=== PATIENT | female | born 1995 | race Caucasian/White ===

== ENCOUNTER 2018-08-22 15:05 | Emergency (ER) | payer SELFPAY ==
[2018-08-22 15:09] VITALS: BP 120/73; PULSE 100; TEMP 98.7; BMI 34.3
--- NOTE | 2018-08-22 15:36 | PDOC ---
History of Present Illness - General Chief Complaint: Shortness of Breath Stated Complaint: S.O.B. Time Seen by Provider: 08/22/18 15:19 History Source: Patient Exam Limitations: No Limitations - History of Present Illness Initial Comments: 08/22/18 15:30 Patient states came to emergency department to be evaluated for difficulties taking deep inspiration. States over the past 2 days after eating some specific food, quesadilla states had difficulty catching her breath and difficulty swallowing. States that episode resolved but toady had same type after drinking. DEnies fevers / cough/ recent illness/ no one home ill. Has never had gastric problems/ no reflux or indigestion. NO N/V/D/C. was concerned after Google search of symptoms that she was having a heart attack /. Timing/Duration: reports: changing over time, intermittent Severity: reports: mild Possible Cause: Yes: no prior episodes Associated Symptoms: reports: shortness of breath. denies: cough, dizziness, earache, nasal congestion, nasal drainage Past History - Travel Traveled outside of the country in the last 30 days: No Close contact w/someone who was outside of country & ill: No - Past Medical History Allergies/Adverse Reactions: Allergies Allergy/AdvReac Type Severity Reaction Status Date / Time No Known Allergies Allergy Verified 08/22/18 15:09 Home Medications: Ambulatory Orders NK [No Known Home Medication] 08/22/18 COPD: No - Immunization History Immunization Up to Date: Yes - Suicide/Smoking/Psychosocial Hx Smoking History: Never smoked Have you smoked in the past 12 months: No Hx Alcohol Use: No Drug/Substance Use Hx: No Substance Use Type: None Review of Systems - Review of Systems Able to Perform ROS?: Yes Is the patient limited [place] proficient: Yes Constitutional: Yes: Symptoms Reported, See HPI, Malaise. No: Fever, Loss of Appetite HEENTM: Yes: See HPI, Difficulty Swallowing. No: Symptoms Reported, Nose Congestion, Throat Swelling, Dental Problems, Mouth Swelling Respiratory: Yes: See HPI, Shortness of Breath (intermittant). No: Symptoms reported, Cough, Wheezing Cardiac (ROS): No: Symptoms Reported : No: Symptoms Reported Musculoskeletal: No: Symptoms Reported Neurological: Yes: See HPI, Tingling. No: Symptoms reported, Headache All Other Systems: Reviewed and Negative *Physical Exam - Vital Signs Last Vital Signs Temp Pulse Resp BP Pulse Ox 98.7 F 100 H 20 120/73 100 08/22/18 15:07 08/22/18 15:07 08/22/18 15:07 08/22/18 15:07 08/22/18 15:07 - Physical Exam General Appearance: Yes: Nourished, Appropriately Dressed. No: Apparent Distress HEENT: positive: ANKUSH, Normal ENT Inspection ( ), TMs Normal, Pharynx Normal, Other (no swelling, redness, masses, bleeding or obstruction noted in posterior pharynx). negative: Pharyngeal Erythema, Tonsillar Exudate, Tonsillar Erythema , Nasal Congestion, Rhinorrhea Neck: positive: Supple. negative: Tender Respiratory/Chest: positive: Lungs Clear, Normal Breath Sounds. negative: Chest Tender, Wheezing Gastrointestinal/Abdominal: positive: Soft. negative: Tender Extremity: positive: Normal Inspection. negative: Normal Capillary Refill Integumentary: positive: Normal Color, Dry, Warm Neurologic: positive: marketing campaign analyst II-XII NML intact, Fully Oriented, Alert, Normal Mood/ Affect, Normal Response, Motor Strength 02/13 ED Treatment Course - RADIOLOGY Radiology Studies Ordered: Category Date Time Status NECK SOFT TISSUE [RAD] Stat Radiology 08/22/18 15:29 Ordered Progress Note - Progress Note Progress Note: Soft tissue neck x-ray negative for any obstruction or pathology noted. We will recommend antacids/H2-blockers to alleviate mild reflux and recommend counseling /psychiatric evaluation for potential mild anxiety which patient admits to. *DC/Admit/Observation/Transfer Diagnosis at time of Disposition: Reflux esophagitis - Discharge Dispostion Disposition: HOME Condition at time of disposition: Stable Decision to Admit order: No - Referrals Referrals: Nico Aguilar MD [Staff Physician] - - Patient Instructions Printed Discharge Instructions: DI for Gastroesophageal Reflux Disease (GERD) Additional Instructions: Drink lots of fluids, avoid any spicy or heavy foods for the next few days May try antacids or Pepcid tabs to see if calm symptoms Follow-up with gastroenterology if symptoms persist for possible further testing and possible scoping Seek mild anxiety councelling as needed - Post Discharge Activity Forms/Work/School Notes: Back to Work
== END 2018-08-22 16:17 | disposition home or self-care (01) ==
LOC: JERFT 15:05
DX: K21.0 Gastro-esophageal reflux disease with esophagitis (principal)
CPT/HCPCS: 70360-TC-FY; 99281-25

== ENCOUNTER 2018-12-11 23:15 | Emergency (ER) | payer OTHER ==
[2018-12-11 23:18] VITALS: BP 112/61; PULSE 90; TEMP 98.2; BMI 36.5
--- NOTE | 2018-12-11 23:31 | PDOC ---
History of Present Illness - General Chief Complaint: Ear Problem Stated Complaint: EAR PAIN Time Seen by Provider: 12/11/18 23:27 History Source: Patient Exam Limitations: No Limitations - History of Present Illness Initial Comments: 12/12/18 00:00 Best Contact: PCP:Denies Pmhx: 0 Pshx: 0 Allergies: NO KNOWN DRUG ALLERGIES FH: Patient's mother denies0 LMP: 11/23/2018 23-year-old female presents to the ER complaining of left-sided ear pain 4 hours with sore throat but denies fever, chills, nausea/vomiting, headache, dizziness, lightheadedness, facial pain, nasal congestion, rhinorrhea, difficulty swallowing/eating or drinking, neck pain/stiffness, back pains, chest pain, shortness of breath, abdominal pains. Patient denies any other complaints. Patient denies taking anything for her discomfort. Past History - Past Medical History Allergies/Adverse Reactions: Allergies Allergy/AdvReac Type Severity Reaction Status Date / Time No Known Allergies Allergy Verified 12/11/18 23:18 Home Medications: Ambulatory Orders NK [No Known Home Medication] 08/22/18 COPD: No - Immunization History Immunization Up to Date: Yes - Suicide/Smoking/Psychosocial Hx Smoking History: Never smoked Have you smoked in the past 12 months: No Information on smoking cessation initiated: No Hx Alcohol Use: No Drug/Substance Use Hx: No Substance Use Type: None Review of Systems - Review of Systems Able to Perform ROS?: Yes Comments:: 12/12/18 00:15 CONSTITUTIONAL: Absent: fever, chills, diaphoresis, generalized weakness, malaise, loss of appetite HEENT: +Left earache, sore throat Absent: rhinorrhea, nasal congestion, throat swelling, difficulty swallowing, mouth swelling, eye pain, visual Changes CARDIOVASCULAR: Absent: chest pain, loss of consciousness, palpitations, irregular heart rate, peripheral edema RESPIRATORY: Absent: cough, shortness of breath, dyspnea with exertion, orthopnea, wheezing, stridor, hemoptysis GASTROINTESTINAL: Absent: abdominal pain, abdominal distension, nausea, vomiting, diarrhea, constipation, melena, hematochezia GENITOURINARY: Absent: dysuria, frequency, urgency, hesitancy, hematuria, flank pain, genital pain MUSCULOSKELETAL: Absent: myalgia, arthralgia, joint swelling SKIN: Absent: rash, itching, pallor HEMATOLOGIC/IMMUNOLOGIC: Absent: easy bleeding, easy bruising, lymphadenopathy, frequent infections ENDOCRINE: Absent: unexplained weight gain, unexplained weight loss, heat intolerance, cold intolerance NEUROLOGIC: Absent: headache, focal weakness or paresthesias, dizziness, unsteady gait, seizure, mental status changes, bladder or bowel incontinence PSYCHIATRIC: Absent: anxiety, depression, suicidal or homicidal ideation, hallucinations. Is the patient limited Qatari proficient: No *Physical Exam - Vital Signs Last Vital Signs Temp Pulse Resp BP Pulse Ox 98.2 F 90 16 112/61 100 12/11/18 23:15 12/11/18 23:15 12/11/18 23:15 12/11/18 23:15 12/11/18 23:15 - Physical Exam Comments: 12/12/18 00:15 GENERAL: Well developed, well nourished. Awake and alert. No acute distress. HEENT: NEG MASTOID PAIN ON PALP Normocephalic, atraumatic. PERRLA, EOMI. No conjunctival pallor. Sclera are non- icteric. Moist mucous membranes. Oropharynx is clear. NECK: Supple. Full ROM. No JVD. Carotid pulses 2+ and symmetric, without bruits. No thyromegaly. No lymphadenopathy. CARDIOVASCULAR: Regular rate and rhythm. No murmurs, rubs, or gallops. Distal pulses are 2+ and symmetric. PULMONARY: No evidence of respiratory distress. Lungs clear to auscultation bilaterally. No wheezing, rales or rhonchi. ABDOMINAL: Soft. Non-tender. Non-distended. No rebound or guarding. No organomegaly. Normoactive bowel sounds. MUSCULOSKELETAL Normal range of motion at all joints. No bony deformities or tenderness. No CVA tenderness. EXTREMITIES: No cyanosis. No clubbing. No edema. No calf tenderness. SKIN: Warm and dry. Normal capillary refill. No rashes. No jaundice. NEUROLOGICAL: Alert, awake, appropriate. Cranial nerves 2-12 intact. No deficits to light touch and temperature in face, upper extremities and lower extremities. No motor deficits in the in face, upper extremities and lower extremities. Normoreflexic in the upper and lower extremities. Normal speech. Toes are down- going bilaterally. Gait is normal without ataxia. PSYCHIATRIC: Cooperative. Good eye contact. Appropriate mood and affect. Moderate Sedation - Procedure Monitoring Vital Signs: Procedure Monitoring Vital Signs Temperature 98.2 F 12/11/18 23:15 Pulse Rate 90 12/11/18 23:15 Respiratory Rate 16 12/11/18 23:15 Blood Pressure 112/61 12/11/18 23:15 O2 Sat by Pulse Oximetry (%) 100 12/11/18 23:15 *DC/Admit/Observation/Transfer Diagnosis at time of Disposition: Otalgia of left ear, Sore throat - Discharge Dispostion Disposition: HOME Condition at time of disposition: Stable Decision to Admit order: No - Referrals Referrals: Emil Chan MD [Staff Physician] - - Patient Instructions Printed Discharge Instructions: DI for Ear Pain-Adult, DI for Viral Pharyngitis Additional Instructions: Tylenol alternating with Motrin as needed for pain Gargle with salt water for you sore throat The strep culture was negative for you throat Follow with the ENT listed on your discharge within the next 48 hours Return back to the ER for severe/persistent or worsening symptoms - Post Discharge Activity
== END 2018-12-12 00:38 | disposition home or self-care (01) ==
LOC: JER 23:15
DX: J02.9 Acute pharyngitis, unspecified (principal)
CPT/HCPCS: 87070; 87880; 99281-25

== ENCOUNTER 2019-01-25 16:08 | Emergency (ER) | payer OTHER ==
[2019-01-25 16:42] VITALS: BP 116/65; PULSE 83; TEMP 98.4; BMI 37.1
--- NOTE | 2019-01-25 16:45 | PDOC ---
Rapid Medical Evaluation Chief Complaint: Chest Pain Time Seen by Provider: 01/25/19 16:38 Medical Evaluation: Allergies Allergy/AdvReac Type Severity Reaction Status Date / Time No Known Allergies Allergy Verified 01/25/19 16:39 01/25/19 16:39 c/o chest pain worse with breathing started today. reports slight improvement after taking advul prior to arrival + OCP use PE; patient alert ox3. breath sounds clear. A: chest pain p: cbc cmp d-dimer chest xray patient to the ER for further management of care, Discharge Disposition - Diagnosis Chest pain Qualifiers: Chest pain type: chest pain on breathing Qualified Code(s): R07.1 - Chest pain on breathing; R07.81 - Pleurodynia - Referrals Referrals: Smitha Tovar MD [Primary Care Provider] - - Patient Instructions - Post Discharge Activity
--- NOTE | 2019-01-25 17:17 | PDOC ---
History of Present Illness - General Chief Complaint: Chest Pain Stated Complaint: Chest Pain Time Seen by Provider: 01/25/19 16:38 History Source: Patient Exam Limitations: No Limitations Past History - Travel Traveled outside of the country in the last 30 days: No Close contact w/someone who was outside of country & ill: No - Past Medical History Allergies/Adverse Reactions: Allergies Allergy/AdvReac Type Severity Reaction Status Date / Time No Known Allergies Allergy Verified 01/25/19 16:39 Home Medications: Ambulatory Orders NK [No Known Home Medication] 08/22/18 COPD: No Diabetes: Yes Hypercholesterolemia: Yes - Immunization History Immunization Up to Date: Yes - Suicide/Smoking/Psychosocial Hx Smoking History: Never smoked Have you smoked in the past 12 months: No Hx Alcohol Use: No Drug/Substance Use Hx: No Substance Use Type: None Review of Systems - Review of Systems Able to Perform ROS?: Yes Comments:: 01/25/19 16:56 CONSTITUTIONAL: Absent: fever, chills, diaphoresis, generalized weakness, malaise, loss of appetite HEENT: Absent: rhinorrhea, nasal congestion, throat pain, throat swelling, difficulty swallowing, mouth swelling, ear pain, eye pain, visual Changes CARDIOVASCULAR: Present: chest pain worse with breathing Absent: loss of consciousness, palpitations, irregular heart rate, peripheral edema RESPIRATORY: Absent: cough, shortness of breath, dyspnea with exertion, orthopnea, wheezing, stridor, hemoptysis GASTROINTESTINAL: Absent: abdominal pain, abdominal distension, nausea, vomiting, diarrhea, constipation, melena, hematochezia GENITOURINARY: Absent: dysuria, frequency, urgency, hesitancy, hematuria, flank pain, genital pain MUSCULOSKELETAL: Absent: myalgia, arthralgia, joint swelling SKIN: Absent: rash, itching, pallor HEMATOLOGIC/IMMUNOLOGIC: Absent: easy bleeding, easy bruising, lymphadenopathy, frequent infections ENDOCRINE: Absent: unexplained weight gain, unexplained weight loss, heat intolerance, cold intolerance NEUROLOGIC: Absent: headache, focal weakness or paresthesias, dizziness, unsteady gait, seizure, mental status changes, bladder or bowel incontinence PSYCHIATRIC: Absent: anxiety, depression, suicidal or homicidal ideation, hallucinations. Is the patient limited [place] proficient: No *Physical Exam - Vital Signs Last Vital Signs Temp Pulse Resp BP Pulse Ox 98.4 F 83 18 116/65 99 01/25/19 16:40 01/25/19 16:40 01/25/19 16:40 01/25/19 16:40 01/25/19 16:40 - Physical Exam Comments: 01/25/19 17:17 GENERAL: Well developed, well nourished. Awake and alert. No acute distress. HEENT: Normocephalic, atraumatic. PERRLA, EOMI. No conjunctival pallor. Sclera are non- icteric. Moist mucous membranes. Oropharynx is clear. NECK: Supple. Full ROM. No JVD. Carotid pulses 2+ and symmetric, without bruits. No thyromegaly. No lymphadenopathy. CARDIOVASCULAR: Regular rate and rhythm. No murmurs, rubs, or gallops. Distal pulses are 2+ and symmetric. PULMONARY: No evidence of respiratory distress. Lungs clear to auscultation bilaterally. No wheezing, rales or rhonchi. ABDOMINAL: Soft. Non-tender. Non-distended. No rebound or guarding. No organomegaly. Normoactive bowel sounds. MUSCULOSKELETAL TTP of the R upper chest wall. Normal range of motion at all joints. No bony deformities or tenderness. No CVA tenderness. EXTREMITIES: No cyanosis. No clubbing. No edema. No calf tenderness. SKIN: Warm and dry. Normal capillary refill. No rashes. No jaundice. NEUROLOGICAL: Alert, awake, appropriate. Cranial nerves 2-12 intact. No deficits to light touch and temperature in face, upper extremities and lower extremities. No motor deficits in the in face, upper extremities and lower extremities. Normoreflexic in the upper and lower extremities. Normal speech. Toes are down- going bilaterally. Gait is normal without ataxia. PSYCHIATRIC: Cooperative. Good eye contact. Appropriate mood and affect. ED Treatment Course - LABORATORY CBC & Chemistry Diagram: 01/25/19 17:55 01/25/19 17:55 Medical Decision Making - Medical Decision Making 01/25/19 20:00 The patient is a 23-year-old female with past medical history of prediabetes, who presents to the emergency department today for right-sided chest pain and shortness of breath. Patient states she was walking with her sister when she suddenly felt a sharp pain on the right side of her chest. She states that it radiated to her back. She also admits to associated shortness of breath. She states that the pain is resolved since sitting in the ER however she feels is starting to creep back up. Denies fevers, chills, sore throat, shortness of breath at rest, nausea, vomiting, diarrhea. Patient does take control. A/P: Right-sided chest pain. On exam patient with tenderness to the right upper chest about the second to third intercostal space. Labs, d-dimer, EKG ordered from [facility]. EKG: Sign out given to ERIK Otto. Patient is pending labs and chest x-ray for disposition *DC/Admit/Observation/Transfer Diagnosis at time of Disposition: Chest pain Qualifiers: Chest pain type: chest pain on breathing Qualified Code(s): R07.1 - Chest pain on breathing - Discharge Dispostion Disposition: HOME Condition at time of disposition: Stable - Referrals Referrals: Smitha Tovar MD [Primary Care Provider] - 2 Days - Patient Instructions Printed Discharge Instructions: DI for Costochondritis, DI for Chest Pain Additional Instructions: Thank you for choosing [facility]. It was a pleasure taking care of you. Your labs and chest xray were normal Likely your pain is musculoskeletal in nature You may take Motrin 600 mg every 6 hours by mouth as needed for mild to moderate pain. Take Motrin with food. Follow-up with your doctor in 2 days Return to the Emergency Department if your symptoms worsen or persist or have other concerning symptoms. - Post Discharge Activity
[2019-01-25 18:33] LABS: BASO % 0.5 % (0-2.0); EOS % 2.9 % (0-4.5); HEMATOCRIT 38.2 % (32.4-45.2); HEMOGLOBIN 12.5 GM/dL (10.7-15.3); LYMPH % 40.2 % (8-40); MCH 28.5 pg (25.7-33.7); MCHC 32.8 g/dl (32.0-36.0); MEAN CELL VOLUME 86.8 fl (80-96); MEAN PLT VOLUME 9.8 fl (7.5-11.1); MONO % 5.7 % (3.8-10.2); NEUT % 50.7 % (42.8-82.8); PLATELET COUNT 228 K/MM3 (134-434); RDW 13.9 % (11.6-15.6); WHITE BLOOD COUNT 7.6 K/mm3 (4.0-10.0)
[2019-01-25 19:03] LABS: ALK PHOS 74 U/L (45-117); ANION GAP 7 MMOL/L (8-16); BILIRUBIN,TOTAL 0.2 mg/dL (0.2-1); BLOOD UREA NITROGEN 8 mg/dL (7-18); CALCIUM 9.1 mg/dL (8.5-10.1); CHLORIDE 109 mmol/L (98-107); CO2 22 mmol/L (21-32); CREATININE 0.6 mg/dL (0.55-1.3); GLUCOSE,RANDOM 82 mg/dL (74-106); POTASSIUM 3.9 mmol/L (3.5-5.1); SGOT/AST 19 U/L (15-37); SGPT/ALT 23 U/L (13-61); SODIUM 138 mmol/L (136-145)
--- NOTE | 2019-01-25 20:01 | PDOC ---
*Physical Exam - Vital Signs Last Vital Signs Temp Pulse Resp BP Pulse Ox 98.4 F 83 18 116/65 99 01/25/19 16:40 01/25/19 16:40 01/25/19 16:40 01/25/19 16:40 01/25/19 16:40 <Irais Dalton - Last Filed: 01/25/19 19:59> - Vital Signs Last Vital Signs Temp Pulse Resp BP Pulse Ox 98.4 F 83 18 116/65 99 01/25/19 16:40 01/25/19 16:40 01/25/19 16:40 01/25/19 16:40 01/25/19 16:40 <Tammy Clement Dennis - Last Filed: 01/26/19 00:04> ED Treatment Course - LABORATORY CBC & Chemistry Diagram: 01/25/19 17:55 01/25/19 17:55 - ADDITIONAL ORDERS Additional order review: Laboratory Results 01/25/19 01/25/19 01/25/19 17:55 17:55 17:55 D-Dimer < 215 Sodium 138 Potassium 3.9 Chloride 109 H Carbon Dioxide 22 Anion Gap 7 L BUN 8 Creatinine 0.6 Creat Clearance w eGFR 123.89 Random Glucose 82 Calcium 9.1 Total Bilirubin 0.2 AST 19 ALT 23 Alkaline Phosphatase 74 Troponin I < 0.02 Total Protein 8.0 Albumin 4.0 Urine HCG, Qual Negative 01/25/19 17:55 RBC 4.40 MCV 86.8 MCHC 32.8 RDW 13.9 MPV 9.8 Neutrophils % 50.7 Lymphocytes % 40.2 H Monocytes % 5.7 Eosinophils % 2.9 Basophils % 0.5 <Irais Dalton - Last Filed: 01/25/19 19:59> - LABORATORY CBC & Chemistry Diagram: 01/25/19 17:55 01/25/19 17:55 - ADDITIONAL ORDERS Additional order review: Laboratory Results 01/25/19 01/25/19 01/25/19 17:55 17:55 17:55 D-Dimer < 215 Sodium 138 Potassium 3.9 Chloride 109 H Carbon Dioxide 22 Anion Gap 7 L BUN 8 Creatinine 0.6 Creat Clearance w eGFR 123.89 Random Glucose 82 Calcium 9.1 Total Bilirubin 0.2 AST 19 ALT 23 Alkaline Phosphatase 74 Troponin I < 0.02 Total Protein 8.0 Albumin 4.0 Urine HCG, Qual Negative 01/25/19 17:55 RBC 4.40 MCV 86.8 MCHC 32.8 RDW 13.9 MPV 9.8 Neutrophils % 50.7 Lymphocytes % 40.2 H Monocytes % 5.7 Eosinophils % 2.9 Basophils % 0.5 <Tammy Clement - Last Filed: 01/26/19 00:04> Medical Decision Making - Medical Decision Making Patient signed out to me by ERIK Ogden Patient feeling better (had taken Motrin prior to coming) Labs unremarkable; D-dimer negative CXR negative Likely MSK pain Stable for dc 01/25/19 19:59 <Irais Dalton - Last Filed: 01/25/19 19:59> - Medical Decision Making The patient was seen and evaluated in conjunction with midlevel provider under my direct supervision, ancillary studies were reviewed. I agree with the plan as outlined by ERIK Dalton. HPI, workup/dispo as outlined. VS reviewed, wnl. 01/26/19 00:04 <Tammy Clement - Last Filed: 01/26/19 00:04> *DC/Admit/Observation/Transfer - Discharge Dispostion Decision to Admit order: No <Irais Dalton - Last Filed: 01/25/19 19:59> <Tammy Clement - Last Filed: 01/26/19 00:04> Diagnosis at time of Disposition: Chest pain Qualifiers: Chest pain type: chest pain on breathing Qualified Code(s): R07.1 - Chest pain on breathing - Discharge Dispostion Disposition: HOME Condition at time of disposition: Stable - Referrals Referrals: Smitha Tovar MD [Primary Care Provider] - 2 Days - Patient Instructions Printed Discharge Instructions: DI for Costochondritis, DI for Chest Pain Additional Instructions: Thank you for choosing [facility]. It was a pleasure taking care of you. Your labs and chest xray were normal Likely your pain is musculoskeletal in nature You may take Motrin 600 mg every 6 hours by mouth as needed for mild to moderate pain. Take Motrin with food. Follow-up with your doctor in 2 days Return to the Emergency Department if your symptoms worsen or persist or have other concerning symptoms. - Post Discharge Activity
--- NOTE | 2019-01-26 12:28 | EKG ---
Test Reason : Blood Pressure : / mmHG Vent. Rate : 079 BPM Atrial Rate : 079 BPM P-R Int : 132 ms QRS Dur : 082 ms QT Int : 352 ms P-R-T Axes : 019 020 011 degrees QTc Int : 403 ms NORMAL SINUS RHYTHM NORMAL ECG NO PREVIOUS ECGS AVAILABLE Confirmed by EZEKIEL GARCIA, ALYSSA ([id number]) on 01/26/2019 12:28:31 PM Referred By: Confirmed By:ALYSSA FALCON MD
== END 2019-01-25 20:15 | disposition home or self-care (01) ==
LOC: JER 16:08
DX: M94.0 Chondrocostal junction syndrome [Tietze] (principal); R07.1 Chest pain on breathing
CPT/HCPCS: 36415; 71046-TC-FY; 80053; 84484; 84703; 85025; 85379; 93005; 93010; 99283-25